=== PATIENT | female | born 2000 | race Caucasian/White ===

== ENCOUNTER 2024-08-16 23:51 | Emergency (ER) | payer OTHER ==
[~2024-08-16] VITALS: Ht 162.6 cm; Wt 63.9 kg
[2024-08-16 23:55] VITALS: TEMP 99
[2024-08-17] MEDS: NS (Normal Saline) 0.9% 1,000 ML IV ONE (02:27)
[2024-08-17] MEDS: diphenhydrAMINE 50MG/ML VIAL IV ONE (02:27)
[2024-08-17] MEDS: METOCLOPRAMIDE INJ 10MG/2ML VIAL IV ONE (02:27)
[2024-08-17] MEDS: KETOROLAC 30 MG/ML 1ML VIAL IV ONE (02:30)
[2024-08-17 03:30] VITALS: BP 104/59; O2SAT 99
== END 2024-08-17 03:33 | disposition home or self-care (01) ==
LOC: M ED 23:51
DX: G43.909 Migraine, unspecified, not intractable, without status migrainosus (principal); Z88.1 Allergy status to other antibiotic agents; Z88.8 Allergy status to other drugs, medicaments and biological substances
CPT/HCPCS: 96361; 96374; 96375; 99284; J1200; J1885; J2765